=== PATIENT | male | born 1940 ===

== ENCOUNTER 2016-09-07 09:24 | Day surgery (SDC) | payer OTHER ==
--- NOTE | 2016-09-06 09:52 | HISTORY AND PHYSICAL ---
ADMITTED: 09/07/2016 HISTORY OF PRESENT ILLNESS: The patient is a 75, soon to be 76-year-old male with a chief complaint of a painful bunion deformity on his right foot. He states it is painful with shoe gear, difficult to walk, and expresses a desire to have it repaired since he has exhausted conservative care. MEDICAL/SURGICAL HISTORY: Includes a history of hypertension. Surgical history is tonsils, adenoids, hernia, right and left shoulder repair. PRIMARY CARE PHYSICIAN: Dr. Banks at the [facility]. MEDICATIONS: 1. Hydrochlorothiazide 25 mg 1 a day. 2. Lisinopril 40 mg 1 a day. 3. One Baby aspirin. ALLERGIES: 1. HE DOES NOT LIST NO DRUG OR FOOD ALLERGY. SOCIAL HISTORY: He is retired, former smoker, does not drink. FAMILY HISTORY: Noncontributory to chief complaint. REVIEW OF SYSTEMS: Ten-point review of systems noncontributory to chief complaint. PHYSICAL EXAMINATION: GENERAL: The patient is alert, oriented x3. HEENT: PERRLA. Normocephalic. HEART: Regular rate and rhythm. Regular S1 and S2. LUNGS: Clear to auscultation. No wheezes, rhonchi, or rales. ABDOMEN: Soft, tender, nondistended. No palpable masses. LOWER EXTREMITY: Vascular: DP and PT pulses are palpable but diminished, subpapillary venous plexus capillary refill delayed but intact. NEUROLOGIC: Deep tendon reflexes, epicritic sensations are intact. Orthopedically, there is a very prominent medial eminence of the right first metatarsal. Crepitus within the first MTP and hypermobility noted at the first TMT. Muscle strength, dorsiflexion, plantarflexion inverters, everters are intact bilaterally and symmetrical. Stance reveals collapsing medial column and valgus heel. LAB/IMAGING: Revealed an increase in the intermetatarsal angle, sesamoid deviation laterally, as well as the sagittal plane elevatus. IMPRESSION: 1. Severe hallux valgus deformity, right foot. PLAN: The patient has consented for a Lapidus bunionectomy with plantar fixation. I did have him have a SensiLase test at [facility], and it was read by Dr. Jay with reading suggests that from an arterial standpoint, he should have no difficulty healing. He is well aware of the findings. There are no contraindications to surgery at this time. Surgery is scheduled on outpatient basis at [facility] on 09/07/2016.
[~2016-09-07] VITALS: Ht 172.7 cm; Wt 81.7 kg
[~2016-09-07 09:24] MED LIST: ASPIRIN ADULT L81 M1 PO; HYDROCHLOROTHIA25 MG PO; LISINOPRIL40 MG PO; LOVASTATIN40 MG PO
[2016-09-07] MEDS ORDERED: ZOFRAN4 MG PO (13:26)
[2016-09-07] MEDS ORDERED: PERCOCET1 TA4 PO (13:26)
--- NOTE | 2016-09-07 13:28 | Provider's Discharge Care Plan ---
Problem, Goal, Plan Problem List 1. Acquired hallux valgus of right foot Goals: Improve function Instructions: Follow up as directed
--- NOTE | 2016-09-07 13:28 | Provider's Discharge Care Plan ---
Problem, Goal, Plan Problem List 1. Acquired hallux valgus of right foot Goals: Improve function Instructions: Follow up as directed
[2016-09-07 14:39] VITALS: BP 125/81
--- NOTE | 2016-09-07 14:51 | DIAGNOSTIC IMAGING REPORT ---
PROCEDURE: XR FOOT 3 VIEWS - RIGHT INDICATION: POST-OP- IN PACU TECHNIQUE: Three views. COMPARISON: None. FINDINGS: Status post bunionectomy. Two screws are in the first metatarsal. Alignment is anatomic. IMPRESSION: 1. Post bunionectomy. Anatomic alignment.
--- NOTE | 2016-09-07 20:18 | OPERATIVE REPORT ---
DATE OF SURGERY: 09/07/2016 SURGEON: Holden Malcolm DPM PREOPERATIVE DIAGNOSIS: 1. Hallux valgus deformity, right foot POSTOPERATIVE DIAGNOSIS: 1. Hallux valgus deformity, right foot PROCEDURE PERFORMED: 1. Distal metatarsal osteotomy, right foot ANESTHESIA: General. HEMOSTASIS: Achieved by a pneumatic ankle tourniquet inflated to 250 mmHg pressure. Tourniquet seemed to malfunction. ESTIMATED BLOOD LOSS: Bleeding was less than 100 mL. MATERIALS: 3-0 and 4-0 Polysorb, 4-0 Surgipro, and two 22 mm headless compression screws, 2.5 diameter by Arthrex. INJECTABLES: Injected 20 mL of 0.5% bupivacaine plain. COMPLICATIONS: None. CONDITION: The patient tolerated anesthesia, procedure well. INDICATIONS: The patient is a 75-year-old male turning 76 on 09/08/2016 with chief complaint of a painful bunion deformity, right foot. He has exhausted conservative care, has elected to proceed with surgical intervention. The patient was consented for a Lapidus bunionectomy with plantar fixation. There are no contraindications to surgery at this time. SURGICAL TECHNIQUE: The patient was brought to the operating room, placed on the table in a supine position. General anesthetic was administered, pneumatic tourniquet was then placed above the right ankle. Right lower extremity was then prepped and draped in normal sterile fashion. Intraoperative pause was carried out for positive identification, proper limb, consent form verified and confirmed. Limb was then exsanguinated with an Esmarch bandage. Tourniquet was inflated. Attention was then directed to procedure #1. Distal metatarsal osteotomy, right foot: A linear incision was made, had originally planned extending from the first tarsometatarsal joint extending distally across the first MTP. We encountered significant vessels just incising the skin. They were tied off with 3-0 Vicryl. However, there was significant engorgement and bleeding was excessive. Checked the tourniquet to see if indeed tourniquet was functioning. Circulating nurse claims that a tourniquet was inflated. Therefore, due to the excessive amount of bleeding and tying off numerous vessels, it was deemed that a more proximal osteotomy would be difficult with visualization. Therefore, instead of a Lapidus we converted into the distal metatarsal osteotomy. Dissection was carried down the periosteum of the first metatarsal head. The collateral ligament was released and indeed there was less bleeding vessels surrounding that as well, they were ligated. Hypertrophied medial eminence was excised. A Chevron osteotomy with the apex being distal, base being proximal [id number], capital fragment was then translated 4 mm laterally and 2 mm in the sagittal plane. Then using standard AO techniques, 2.5, 22 mm headless compression screws were then driven from proximal dorsal to plantar distal. Redundant metatarsal medially was excised. The area was copiously lavaged and flushed. All bleeders were addressed, ensured that they were tied off or ligated. The capsule and periosteum were reapproximated with 3-0 Polysorb, subcutaneous with 4-0 Polysorb, and skin edges reapproximated with running Surgipro. Fluoroscopy was utilized to evaluate and there was congruency of the first MTP. Upon verification under fluoroscopy, the foot was cleaned and then was locally anesthetized with the aforementioned local anesthetic. A compressive dressing was applied. The patient tolerated anesthesia, procedure well, left operating room with vital signs stable. While in recovery, written instructions of touchdown weightbearing with the aid of a postoperative shoe. Prognosis is guarded. She will be discharged home in stable condition.
== END 2016-09-07 15:14 | disposition home or self-care (01) ==
LOC: SCU SRH 09:24 → OR SRH 09:24 → SCU SRH 09:31 → OR SRH 10:00
PROVIDERS: Podiatrist
PROC: 0QSN04Z Reposition Right Metatarsal with Internal Fixation Device, Open Approach (ICD-10-PCS; principal; 2016-09-07 13:00)
DX: M20.11 Hallux valgus (acquired), right foot (principal); M21.611 Bunion of right foot; I10 Essential (primary) hypertension